=== PATIENT | female | born 1975 | race Caucasian/White ===

== ENCOUNTER 2017-01-02 22:28 | Emergency (ER) | payer OTHER ==
--- NOTE | ~2017-01-02 | CR63 ---
[facility] A Service of [facility] RADIOLOGY TEXT RESULTS PATIENT: WHITNEY ENCINAS LOCATION: [facility] : 71 UNIT #: [id number] AGE: [address]: John Rodriguez MD SEX: F ORDER DR: [id number] [facility] [address] [place], [place] [address] [id number] E MR#: [id number] Acc #: [id number] NAME: WHITNEY ENCINAS : 1975 SEX: F STUDY DATE/TIME: 01/02/2017 23:39 UNIT: [facility] ROOM: STUDY DESCRIPTION: CR Chest 2 View Attending Physician: John Rodriguez M.D. Ordering Physician: John Rodriguez M.D. Primary Care Physician: Primary Care Physician No MEDICAL IMAGING REPORT This report is preliminary unless electronic signature is present EXAM Two-view chest INDICATION Cough and shortness of air for the past 2 weeks. PROCEDURE Frontal and lateral views of the chest. COMPARISON None. FINDINGS Heart size normal. No dense consolidation, pleural fluid or pneumothorax. IMPRESSION No active process. Dictated by... Magdaleno Silverio M.D. THIS IS AN ELECTRONICALLY VERIFIED REPORT Magdaleno Silverio M.D. at 01/03/2017 10:01 PM PARVIN/heidi TD: 01/03/2017 00:35 JOB #: [id number] MEDICAL IMAGING REPORT Page 1 of 1 COPY
--- NOTE | ~2017-01-02 | CT2 ---
[facility] A Service of [facility] RADIOLOGY TEXT RESULTS PATIENT: WHITNEY ENCINAS LOCATION: [facility] : 71 UNIT #: [id number] AGE: [address]: John Rodriguez MD SEX: F ORDER DR: [id number] [id number] [place] [facility] [place], [place] [address] [id number] E MR#: [id number] Acc #: [id number] NAME: WHITNEY ENCINAS : 1975 SEX: F STUDY DATE/TIME: 01/03/2017 2:11 UNIT: [facility] ROOM: STUDY DESCRIPTION: CT Abd and Pelv W Cont Attending Physician: John Rodriguez M.D. Ordering Physician: John Rodriguez M.D. Primary Care Physician: Primary Care Physician No MEDICAL IMAGING REPORT This report is preliminary unless electronic signature is present EXAM CT abdomen and pelvis with contrast INDICATION Fever and vomiting for the past 3 weeks. PROCEDURE Contrast-enhanced CT of the abdomen and pelvis. This CT exam was performed with one or more of the following radiation dose reduction techniques: automatic exposure control, adjustment of mA and/or kV according to patient size, and iterative reconstruction. COMPARISON None. FINDINGS ABDOMEN WITH CONTRAST: Included lung bases clear. Liver, spleen, kidneys, adrenal glands, pancreas and gallbladder have no acute abnormality. Bowel loops are nondilated. Moderate colonic stool and gas burden. PELVIS WITH CONTRAST: A 3.3 cm right adnexal cyst and a small amount of fluid in the right adnexa. No aggressive-appearing bone lesion. IMPRESSION 1. No clearly acute finding. 2. Moderate colonic stool and gas. 3. A 3.3 cm cyst and a small amount of fluid in the right adnexa, probably physiologic findings. [facility] A Service of [facility] RADIOLOGY TEXT RESULTS PATIENT: WHITNEY ENCINAS LOCATION: [facility] : 71 UNIT #: [id number] AGE: [address]: John Rodriguez MD SEX: F ORDER DR: Dictated by... Magdaleno Silverio M.D. THIS IS AN ELECTRONICALLY VERIFIED REPORT Magdaleno Silverio M.D. at 01/03/2017 10:00 PM PARVIN/heidi TD: 01/03/2017 03:03 JOB #: [id number] MEDICAL IMAGING REPORT Page 1 of 1 COPY
[2017-01-03 00:19] LABS: URINE SOURCE CLEAN CATCH
[2017-01-03 00:24] LABS: URINE APPEARANCE CLEAR; URINE BILIRUBIN NEG (NEG); URINE BLOOD NEG (NEG); URINE COLOR YELLOW; URINE GLUCOSE NEG (NEG); URINE KETONE TRACE (NEG); URINE LEUKOCYTE ESTERASE 1+ (NEG); URINE NITRATE NEG (NEG); URINE PH 5.5 (5-8); URINE PROTEIN TRACE (NEG); URINE SPECIFIC GRAVITY 1.022 (1.003-1.035); URINE UROBILINOGEN 0.2 MG/DL (NEG)
[2017-01-03 00:28] LABS: CULTURE INDICATED? YES; URINE BACTERIA AUWI NEG (NEGATIVE); URINE SQUAMOUS EPITHELIAL CELL FEW /[HPF]
[2017-01-03 00:31] LABS: ALBUMIN SERUM 4.5 g/dL (3.5-5.0); BILIRUBIN, DIRECT 0.1 mg/dL (0.0-0.2); BILIRUBIN,INDIRECT 0.4 mg/dL (0.0-0.9); BILIRUBIN,TOTAL 0.5 mg/dL (0.2-2.0); BUN/CREATININE RATIO 11.42; CREATININE SERUM 0.7 mg/dL (0.6-1.4); GLOM FILT RATE Estimated 106.1 mL/min (>60); POTASSIUM 3.5 mmol/L (3.5-5.1); PROTEIN TOTAL SERUM 7.5 g/dL (6.0-8.3)
[2017-01-03 00:32] LABS: BASOPHIL# 0.1 X10e3 (0-0.3); BASOPHIL% 0.7 % (0-2.5); DIFF IND YES; EOSINOPHIL% 0.7 % (0.0-7.0); HEMATOCRIT 38.8 % (35.0-45.0); HEMOGLOBIN 11.9 gm/dL (12.0-16.0); LYMPHOCYTE# 0.5 X10e3 (1.0-3.5); LYMPHOCYTE% 6.3 % (17.0-45.0); MEAN CELL VOLUME 64.6 FL (83-96); MEAN CORPUSCULAR HEMOGLOBIN 19.9 PG (28-34); MEAN CORPUSCULAR HGB CONC 30.8 g/dL (30-36); MEAN PLATELET VOLUME 8.4 FL (6.5-11.5); MONOCYTE# 0.6 X10e3 (0-1.0); MONOCYTE% 7.6 % (3.0-12.0); NEUTROPHIL# 6.1 X10e3 (1.5-7.1); NEUTROPHIL% 84.7 % (40-75); PLATELET COUNT 170 X10e3 (140-420); WHITE BLOOD COUNT 7.2 X10e3 (4.0-10.5)
[2017-01-03 00:51] LABS: HYPERSEGMENTED POLYS PRESENT; PLATELET ESTIMATE NORMAL (NORMAL); POLYCHROMASIA SL
== END 2017-01-03 03:15 | disposition home or self-care (01) ==
LOC: CED 22:28
PROVIDERS: Emergency Medicine
DX: R50.9 Fever, unspecified (principal); R11.2 Nausea with vomiting, unspecified; R19.7 Diarrhea, unspecified; F17.200 Nicotine dependence, unspecified, uncomplicated
CPT/HCPCS: 36415; 71020; 74177; 80048; 80076; 81003; 83690; 84703; 85025; 87086; 96361; 96374; 96376; 99284; J2405; Q9967